=== PATIENT | female | born 1965 ===

== ENCOUNTER 2022-11-18 02:47 | Inpatient (IN) | payer OTHER ==
[2022-11-18 02:59] VITALS: BMI 28.1
[2022-11-18] MEDS ORDERED: MAGNESIUM HYDROX 2400MG/30ML ORAL SUSPENSION 30 ML CUP PO PRN (03:29)
[2022-11-18] MEDS ORDERED: guaiFENesin 600 MG TABLET.ER (FP) PO PRN (03:29)
[2022-11-18] MEDS ORDERED: IBUPROFEN 600 MG TABLET (FP) PO PRN (03:29)
[2022-11-18] MEDS ORDERED: MAG HYDROX/AL HYDROX/SIMETH 30 ML UNIT-DOSE CUP PO PRN (03:29)
[2022-11-18] MEDS ORDERED: LOPERAMIDE HCL 2 MG CAPSULE PO PRN (03:29)
[2022-11-18] MEDS ORDERED: NALOXONE HCL (KLOXXADO) 8 MG SPRAY NS PRN (03:29)
[2022-11-18] MEDS ORDERED: BENZONATATE 200 MG CAPSULE PO PRN (03:29)
[2022-11-18] MEDS ORDERED: NALOXONE HCL 0.4 MG/ML VIAL IM PRN (03:29)
[2022-11-18] MEDS ORDERED: ONDANSETRON *ODT* 4 MG TABLET SL PRN (03:29)
[2022-11-18] MEDS ORDERED: DICYCLOMINE HCL 10 MG CAPSULE PO PRN (03:29)
[2022-11-18] MEDS ORDERED: NICOTINE POLACRILEX 2 MG GUM BUC PRN (03:29)
[2022-11-18] MEDS ORDERED: BENZOCAINE/MENTHOL (CHLORASEPTIC ) LOZENGE MM PRN (03:29)
[2022-11-18] MEDS ORDERED: BISMUTH SUBSALICYLATE 524 MG/30 ML PO PRN (03:29)
[2022-11-18] MEDS ORDERED: IBUPROFEN 400 MG TABLET (FP) PO PRN (03:29)
[2022-11-18] MEDS ORDERED: POLYETHYLENE GLYCOL (HEALTHYLAX) 3350 17 GM PACKET PO PRN (03:29)
[2022-11-18] MEDS ORDERED: chlordiazePOXIDE HCL 25 MG CAPSULE PO PRN (03:33)
[2022-11-18] MEDS ORDERED: chlordiazePOXIDE HCL 25 MG CAPSULE ONE (04:14)
[2022-11-18] MEDS ORDERED: METHOCARBAMOL 500 MG TABLET ONE (04:15)
[2022-11-18] MEDS: chlordiazePOXIDE HCL 25 MG CAPSULE PO SCH ×4 (04:25→23:21)
[2022-11-18] MEDS: METHOCARBAMOL 500 MG TABLET PO PRN ×2 (04:25→17:29)
[2022-11-18] MEDS: PRENATAL VITAMINS W/ FOLIC ACID TABLET (FP) PO SCH (11:00)
[2022-11-18] MEDS: NICOTINE 21 MG/24 HOURS TOPICAL PATCH TD SCH (11:02)
[2022-11-18] MEDS: ALBUTEROL SO4 HFA INHALER IH PRN (17:51)
[2022-11-18] MEDS: MELATONIN 5 MG TABLETS PO SCH (22:57)
[2022-11-18] MEDS: THIAMINE HCL 100 MG TABLET (FP) PO SCH (22:57)
[2022-11-18] MEDS: ACETAMINOPHEN 325 MG TABLET (FP) PO PRN (22:58)
[2022-11-18] MEDS: hydrOXYzine PAMOATE 25 MG CAPSULE (FP) PO PRN (22:58)
[2022-11-19] MEDS: chlordiazePOXIDE HCL 25 MG CAPSULE PO SCH ×4 (06:10→22:26)
[2022-11-19] MEDS: ALBUTEROL SO4 HFA INHALER IH PRN ×2 (08:35→12:56)
[2022-11-19 09:50] LABS: HEMATOCRIT 41.2 % (32.4-45.2); HEMOGLOBIN 13.9 GM/dL (10.7-15.3); MCH 32.4 pg (25.7-33.7); MCHC 33.8 g/dl (32.0-36.0); MEAN CELL VOLUME 95.8 fl (80-96); MEAN PLT VOLUME 8.4 fl (7.5-11.1); PLATELET COUNT 222 10^3/uL (134-434); RDW 12.7 % (11.6-15.6); WHITE BLOOD COUNT 5.1 K/mm3 (4.0-10.0)
[2022-11-19 10:00] LABS: ALBUMIN 3.1 g/dl (3.4-5.0); CALCIUM 9.1 mg/dL (8.5-10.1)
[2022-11-19 10:04] LABS: CREATININE 0.5 mg/dL (0.55-1.3)
[2022-11-19 10:05] LABS: BILIRUBIN,TOTAL 0.3 mg/dL (0.2-1)
[2022-11-19] MEDS: NICOTINE 21 MG/24 HOURS TOPICAL PATCH TD SCH (10:11)
[2022-11-19] MEDS: PRENATAL VITAMINS W/ FOLIC ACID TABLET (FP) PO SCH (10:11)
[2022-11-19] MEDS: METHOCARBAMOL 500 MG TABLET PO PRN (22:26)
[2022-11-19] MEDS: hydrOXYzine PAMOATE 25 MG CAPSULE (FP) PO PRN (22:26)
[2022-11-19] MEDS: THIAMINE HCL 100 MG TABLET (FP) PO SCH (22:26)
[2022-11-19] MEDS: MELATONIN 5 MG TABLETS PO SCH (22:26)
[2022-11-20] MEDS ORDERED: chlordiazePOXIDE HCL 10 MG CAPSULE PO PRN
[2022-11-20] MEDS: chlordiazePOXIDE HCL 10 MG CAPSULE PO SCH ×3 (05:49→17:23)
[2022-11-20] MEDS: PRENATAL VITAMINS W/ FOLIC ACID TABLET (FP) PO SCH (10:21)
[2022-11-20] MEDS: NICOTINE 21 MG/24 HOURS TOPICAL PATCH TD SCH (10:21)
[2022-11-20] MEDS: METHOCARBAMOL 500 MG TABLET PO PRN (12:43)
[2022-11-20] MEDS: ACETAMINOPHEN 325 MG TABLET (FP) PO PRN (12:43)
[2022-11-20 21:09] VITALS: BP 111/77; PULSE 106; RESP 16; TEMP 96.9
[2022-11-20] MEDS ORDERED: LACTULOSE 20 GM/30 ML UDC (FOR ORAL USE ONLY) PO SCH (22:00)
[2022-11-21] MEDS ORDERED: chlordiazePOXIDE HCL 10 MG CAPSULE PO SCH (05:00)
[2022-11-22] MEDS ORDERED: chlordiazePOXIDE HCL 10 MG CAPSULE PO ONE (05:00)
== END 2022-11-20 22:55 | disposition left against medical advice (07) | DRG 894 ==
LOC: YASAS 02:47 → Y3N 04:10
PROVIDERS: ADMIT Allergy & Immunology; ATTEND Allergy & Immunology
PROC: HZ2ZZZZ Detoxification Services for Substance Abuse Treatment (ICD-10-PCS; principal; 2022-11-18)
DX: F10.230 Alcohol dependence with withdrawal, uncomplicated (principal); F17.210 Nicotine dependence, cigarettes, uncomplicated; F10.282 Alcohol dependence with alcohol-induced sleep disorder; F10.24 Alcohol dependence with alcohol-induced mood disorder; F41.9 Anxiety disorder, unspecified; F32.A Depression, unspecified; J45.909 Unspecified asthma, uncomplicated; M06.9 Rheumatoid arthritis, unspecified; L40.9 Psoriasis, unspecified; R79.89 Other specified abnormal findings of blood chemistry; Z62.810 Personal history of physical and sexual abuse in childhood; Z85.828 Personal history of other malignant neoplasm of skin; Z28.310 Unvaccinated for COVID-19; Z28.9 Immunization not carried out for unspecified reason
CPT/HCPCS: 36415; 80053; 81025; 82140; 85027; 86593; 86780; 87635; 87811; 93005; 93010